=== PATIENT | male | born 1940 | race Caucasian/White ===

== ENCOUNTER 2019-06-12 17:24 | Emergency (ER) | payer MEDICARE, BC ==
[2019-06-12 17:32] VITALS: TEMP 98
[2019-06-12] MEDS ORDERED: ONDANSETRON 4 MG/2 ML VIAL IVP STA (18:26)
[2019-06-12] MEDS ORDERED: SODIUM CHLORIDE 0.9% 1,000 ML IV STA (18:26)
--- NOTE | 2019-06-12 18:55 | ED ---
Weakness HPI - General Chief complaint: Weakness Stated complaint: Dehydration Time Seen by Provider: 06/12/19 18:16 Source: patient Mode of arrival: ambulatory Limitations: no limitations - History of Present Illness Initial comments: patient is 78-year-old male presenting to emergency department with a chief complaint of weakness. He states on he developed nausea vomiting and diarrhea. He reports diarrhea continue for the next several days but it gradually resolved. He reports the nausea but there is not vomiting at this time. Patient reports dyspnea on exertion over the last several days. Denies any chest pain but does have some shortness of breath. Never diagnosed with COPD I did smoke long time ago. Does report some light headedness but denies any dizziness or headache or blurry vision. Denies taking any medication to all eviate the symptoms. Denies any abdominal or back pain or cough. Denies night sweats fevers or chills. Denies any urinary bowel symptoms. - Related Data Previous Rx's Medication Instructions Recorded Ondansetron Odt [Zofran Odt] 4 mg PO Q8HR PRN #10 tab 06/12/19 Allergies Allergy/AdvReac Type Severity Reaction Status Date / Time No Known Allergies Allergy Verified 06/12/19 17:32 Review of Systems ROS Statement: Those systems with pertinent positive or pertinent negative responses have been documented in the HPI. ROS Other: All systems not noted in ROS Statement are negative. Past Medical History Past Medical History: Cancer, Chest Pain / Angina, Hypertension Additional Past Medical History / Comment(s): prostate ca History of Any Multi-Drug Resistant Organisms: None Reported Past Surgical History: Heart Catheterization, Prostate Surgery Past Psychological History: No Psychological Hx Reported Smoking Status: Never smoker Past Alcohol Use History: None Reported Past Drug Use History: None Reported General Exam Limitations: no limitations General appearance: alert, in no apparent distress Head exam: Present: atraumatic, normocephalic, normal inspection Eye exam: Present: normal appearance, PERRL, EOMI Pupils: Present: normal accommodation ENT exam: Present: normal exam, normal oropharynx, mucous membranes dry, normal external ear exam Neck exam: Present: normal inspection, full ROM Respiratory exam: Present: normal lung sounds bilaterally. Absent: respiratory distress, wheezes, rales, rhonchi, stridor, chest wall tenderness Cardiovascular Exam: Present: regular rate, normal rhythm, normal heart sounds GI/Abdominal exam: Present: soft. Absent: tenderness, guarding Extremities exam: Present: normal inspection, full ROM, normal capillary refill, other (+2 ulnar and radial pulses bilaterally.) Back exam: Present: normal inspection, full ROM. Absent: tenderness, CVA tenderness (R), CVA tenderness (L) Neurological exam: Present: alert, oriented X3, CN II-XII intact, normal gait Psychiatric exam: Present: normal affect, normal mood Skin exam: Present: warm, dry, intact, normal color Course Vital Signs 06/12/19 06/12/19 17:29 19:04 Temperature 98.0 F Pulse Rate 61 73 Respiratory 20 18 Rate Blood Pressure 129/85 134/87 O2 Sat by Pulse 97 98 Oximetry EKG Findings - EKG Comments: EKG Findings:: sinus rhythm with first-degree AV block, PA-C. Ventricular rate 82, MD interval 216, QS duration 104, QTC 476. Medical Decision Making - Medical Decision Making patient is a 78-year-old male presenting to emergency Department with chief complaint of weakness. It appears the patient has had gastroenteritis over the last several days. He reports multiple episodes of diarrhea and vomiting and does have some nausea.exam shows mucosal dehydration.no wheezing on auscultation. CMP shows increased BUN which is suspect secondary to dehydration due to gastroenteritis. Patient given Zofran and fluids. Reevaluation patient reports feeling much better. Family members agree as well. Initial troponin is negative. D-dimer negative. CBC unremarkable. patient has to walk and he was able to do without any assistance or assisting devices. Patient reports the dyspnea on exertion has almost completely resolved. Doesn't have any chest pain reports dizziness and lightheadedness is also resolved. Patient states that he would like to home. Patient discharged with Zofran. He was advised to drink lots of fluids with electrolytes. Advised to follow with primary care. Strict return parameters were thoroughly discussed with him and family members who are agreeable and understanding. Case discussed with physician. - Lab Data Result diagrams: 06/12/19 18:44 06/12/19 18:44 Lab Results 06/12/19 06/12/19 06/12/19 Range/Units 18:44 18:44 18:44 WBC 7.5 (3.8-10.6) k/uL RBC 4.98 (4.30-5.90) m/uL Hgb 15.5 (13.0-17.5) gm/dL Hct 45.3 (39.0-53.0) % MCV 90.8 (80.0-100.0) fL MCH 31.1 (25.0-35.0) pg MCHC 34.3 (31.0-37.0) g/dL RDW 13.9 (11.5-15.5) % Plt Count 385 (150-450) k/uL Neutrophils % 55 % Lymphocytes % 32 % Monocytes % 9 % Eosinophils % 1 % Basophils % 2 % Neutrophils # 4.1 (1.3-7.7) k/uL Lymphocytes # 2.3 (1.0-4.8) k/uL Monocytes # 0.7 (0-1.0) k/uL Eosinophils # 0.1 (0-0.7) k/uL Basophils # 0.1 (0-0.2) k/uL PT 11.2 (9.0-12.0) sec INR 1.1 (<1.2) APTT 23.5 (22.0-30.0) sec D-Dimer 0.27 (<0.60) mg/L FEU Sodium 137 (137-145) mmol/L Potassium 4.2 (3.5-5.1) mmol/L Chloride 104 (98-107) mmol/L Carbon Dioxide 23 (22-30) mmol/L Anion Gap 10 mmol/L BUN 34 H (9-20) mg/dL Creatinine 1.18 (0.66-1.25) mg/dL Est GFR (CKD-EPI)AfAm 68 (>60 ml/min/1.73 sqM) Est GFR (CKD-EPI)NonAf 58 (>60 ml/min/1.73 sqM) Glucose 108 H (74-99) mg/dL Calcium 9.7 (8.4-10.2) mg/dL Total Bilirubin 1.0 (0.2-1.3) mg/dL AST 66 H (17-59) U/L ALT 54 H (4-49) U/L Alkaline Phosphatase 48 (38-126) U/L Troponin I (0.000-0.034) ng/mL Total Protein 7.4 (6.3-8.2) g/dL Albumin 4.3 (3.5-5.0) g/dL Urine Color Urine Appearance (Clear) Urine pH (5.0-8.0) Ur Specific [place] (1.001-1.035) Urine Protein (Negative) Urine Glucose (UA) (Negative) Urine Ketones (Negative) Urine Blood (Negative) Urine Nitrite (Negative) Urine Bilirubin (Negative) Urine Urobilinogen (<2.0) mg/dL Ur Leukocyte Esterase (Negative) Urine RBC (0-5) /hpf Urine WBC (0-5) /hpf Ur Squamous Epith Cells (0-4) /hpf Amorphous Sediment (None) /hpf Urine Bacteria (None) /hpf Hyaline Casts (0-2) /lpf Urine Mucus (None) /hpf 06/12/19 06/12/19 Range/Units 18:44 19:10 WBC (3.8-10.6) k/uL RBC (4.30-5.90) m/uL Hgb (13.0-17.5) gm/dL Hct (39.0-53.0) % MCV (80.0-100.0) fL MCH (25.0-35.0) pg MCHC (31.0-37.0) g/dL RDW (11.5-15.5) % Plt Count (150-450) k/uL Neutrophils % % Lymphocytes % % Monocytes % % Eosinophils % % Basophils % % Neutrophils # (1.3-7.7) k/uL Lymphocytes # (1.0-4.8) k/uL Monocytes # (0-1.0) k/uL Eosinophils # (0-0.7) k/uL Basophils # (0-0.2) k/uL PT (9.0-12.0) sec INR (<1.2) APTT (22.0-30.0) sec D-Dimer (<0.60) mg/L FEU Sodium (137-145) mmol/L Potassium (3.5-5.1) mmol/L Chloride (98-107) mmol/L Carbon Dioxide (22-30) mmol/L Anion Gap mmol/L BUN (9-20) mg/dL Creatinine (0.66-1.25) mg/dL Est GFR (CKD-EPI)AfAm (>60 ml/min/1.73 sqM) Est GFR (CKD-EPI)NonAf (>60 ml/min/1.73 sqM) Glucose (74-99) mg/dL Calcium (8.4-10.2) mg/dL Total Bilirubin (0.2-1.3) mg/dL AST (17-59) U/L ALT (4-49) U/L Alkaline Phosphatase (38-126) U/L Troponin I <0.012 (0.000-0.034) ng/mL Total Protein (6.3-8.2) g/dL Albumin (3.5-5.0) g/dL Urine Color Yellow Urine Appearance Cloudy (Clear) Urine pH 5.5 (5.0-8.0) Ur Specific [place] 1.023 (1.001-1.035) Urine Protein Trace H (Negative) Urine Glucose (UA) Negative (Negative) Urine Ketones Negative (Negative) Urine Blood Negative (Negative) Urine Nitrite Negative (Negative) Urine Bilirubin Negative (Negative) Urine Urobilinogen <2.0 (<2.0) mg/dL Ur Leukocyte Esterase Negative (Negative) Urine RBC 1 (0-5) /hpf Urine WBC 2 (0-5) /hpf Ur Squamous Epith Cells <1 (0-4) /hpf Amorphous Sediment Rare H (None) /hpf Urine Bacteria Rare H (None) /hpf Hyaline Casts 24 H (0-2) /lpf Urine Mucus Moderate H (None) /hpf Disposition Clinical Impression: Gastroenteritis Disposition: HOME SELF-CARE Condition: Stable Instructions (If sedation given, give patient instructions): Gastroenteritis (DC) Additional Instructions: Please drink lots of fluids with a O's. Follow with primary care. Please return to emergency department if symptoms worsen. Is patient prescribed a controlled substance at d/c from ED?: No Referrals: Nonstaff,Physician [REFERRING] - 1-2 days Time of Disposition: 20:57
[2019-06-12 19:11] LABS: Basophils # (A) 0.1 k/uL (0-0.2); Basophils % (A) 2 %; Eosinophils # (A) 0.1 k/uL (0-0.7); Eosinophils % (A) 1 %; HCT 45.3 % (39.0-53.0); HGB 15.5 gm/dL (13.0-17.5); Lymphocytes # (A) 2.3 k/uL (1.0-4.8); Lymphocytes % (A) 32 %; MCH 31.1 pg (25.0-35.0); MCHC 34.3 g/dL (31.0-37.0); MCV 90.8 fL (80.0-100.0); Mean Platelet Volume 8.6; Monocytes # (A) 0.7 k/uL (0-1.0); Monocytes % (A) 9 %; Neutrophils # (A) 4.1 k/uL (1.3-7.7); Neutrophils % (A) 55 %; Platelet Count 385 k/uL (150-450); RBC 4.98 m/uL (4.30-5.90); RDW 13.9 % (11.5-15.5); WBC 7.5 k/uL (3.8-10.6)
[2019-06-12 19:14] LABS: Albumin 4.3 g/dL (3.5-5.0); Calcium 9.7 mg/dL (8.4-10.2); Potassium 4.2 mmol/L (3.5-5.1); Total Protein 7.4 g/dL (6.3-8.2)
[2019-06-12 19:31] LABS: D-Dimer 0.27 mg/L FEU (<0.60); INR 1.1 (<1.2)
[2019-06-12 19:32] LABS: Partial Thromboplastin Time 23.5 sec (22.0-30.0); Prothrombin Time 11.2 sec (9.0-12.0)
[2019-06-12 19:37] LABS: Amorphous Sediment,Urine Rare /hpf; Appearance,Urine Cloudy (Clear); Bacteria,Urine Rare /hpf; Bilirubin,Urine Negative (Negative); Blood,Urine Negative (Negative); Color,Urine Yellow; Glucose,Urine (UA) Negative (Negative); Hyaline Casts,Urine 24 /lpf (0-2); Ketones,Urine Negative (Negative); Leukocyte Esterase,Urine Negative (Negative); Mucus,Urine Moderate /hpf; Nitrite,Urine Negative (Negative); PH, Urine 5.5 (5.0-8.0); Protein,Urine Trace (Negative); RBC,Urine 1 /hpf (0-5); Specific Gravity,Urine 1.023 (1.001-1.035); Squamous Epithelial Cell,Urine <1 /hpf (0-4); Urobilinogen,Urine <2.0 mg/dL (<2.0); WBC,Urine 2 /hpf (0-5)
--- NOTE | 2019-06-12 19:42 | XR ---
EXAMINATION TYPE: XR chest 2V DATE OF EXAM: 06/12/2019 COMPARISON: NONE HISTORY: Nausea and vomiting TECHNIQUE: 2 views FINDINGS: Heart is normal. Lungs are clear of infiltrate. Thoracic aorta is atheromatous. There are c hest leads. Bony thorax is intact. There is minor spurring in the thoracic spine. IMPRESSION: No active cardiomegaly disease. Normal heart.
[2019-06-12] MEDS ORDERED: ONDANSETRON 4 MG ODT STARTER PACK 2 TAB BTL PO STA (20:52)
[2019-06-12 21:20] VITALS: BP 128/85; PULSE 84; RESP 20
== END 2019-06-12 21:22 | disposition home or self-care (01) ==
LOC: EC 17:24
DX: K52.9 Noninfective gastroenteritis and colitis, unspecified (principal); E86.0 Dehydration; R79.89 Other specified abnormal findings of blood chemistry; R53.1 Weakness; R06.02 Shortness of breath; Z87.891 Personal history of nicotine dependence; Z85.46 Personal history of malignant neoplasm of prostate; Z98.890 Other specified postprocedural states
CPT/HCPCS: 36415; 93005; 85379; 80053; 84484; 85025; 85610; 85730; 81001; 71046; 99285; 96374; 96361; J2405; S0119

== ENCOUNTER 2019-06-16 18:25 | Observation (INO) | payer MEDICARE, BC ==
[2019-06-16] MEDS ORDERED: SODIUM CHLORIDE 0.9% 500 ML 500 ML IV STA (18:40)
[2019-06-16] MEDS ORDERED: ONDANSETRON 4 MG/2 ML VIAL IVP STA (18:40)
--- NOTE | 2019-06-16 18:46 | ED ---
General Adult HPI - General Chief complaint: Weakness Stated complaint: Weakness Time Seen by Provider: 06/16/19 18:27 Source: patient, EMS Mode of arrival: EMS Limitations: no limitations - History of Present Illness Initial comments: Patient presents the ED by ambulance for evaluation. Patient states that he has felt generally weak since yesterday, and he has felt off balance and dizzy since this morning. Patient also admits to feeling slightly nauseated. Patient was seen in the ED a few days ago for vomiting and diarrhea, and he states that his vomiting and diarrhea have since resolved. Patient denies having any pain, fever or chills, headache, focal numbness/weakness/neuro deficit, visual changes, speech difficulty, chest pain, dyspnea, cough or cold symptoms, palpitations, syncope, abdominal pain, bloody or melanotic stool, dysuria or urinary symptoms, leg or calf swelling or pain, or any other symptoms or complaints. - Related Data Previous Rx's Medication Instructions Recorded Ondansetron Odt [Zofran Odt] 4 mg PO Q8HR PRN #10 tab 06/12/19 Allergies Allergy/AdvReac Type Severity Reaction Status Date / Time No Known Allergies Allergy Verified 06/12/19 17:32 Review of Systems ROS Statement: Those systems with pertinent positive or pertinent negative responses have been documented in the HPI. ROS Other: All systems not noted in ROS Statement are negative. Past Medical History Past Medical History: Cancer, Chest Pain / Angina, Hypertension Additional Past Medical History / Comment(s): prostate ca History of Any Multi-Drug Resistant Organisms: None Reported Past Surgical History: Heart Catheterization, Prostate Surgery Past Psychological History: No Psychological Hx Reported Smoking Status: Never smoker Past Alcohol Use History: None Reported Past Drug Use History: None Reported General Exam Limitations: no limitations General appearance: alert, in no apparent distress Head exam: Present: atraumatic, normocephalic Eye exam: Present: normal appearance, PERRL, EOMI ENT exam: Present: mucous membranes moist Neck exam: Present: other (Trachea is in midline) Respiratory exam: Present: normal lung sounds bilaterally. Absent: respiratory distress, wheezes, rales, rhonchi Cardiovascular Exam: Present: normal rhythm, bradycardia, normal heart sounds, other (Normal radial pulses bilaterally) GI/Abdominal exam: Present: soft. Absent: distended, tenderness, guarding Extremities exam: Present: full ROM. Absent: tenderness, pedal edema, calf tenderness Neurological exam: Present: alert, oriented X3, CN II-XII intact, other (Normal [id number] exam bilaterally). Absent: motor sensory deficit Psychiatric exam: Present: normal affect, normal mood Skin exam: Present: warm, dry, intact, normal color Course Vital Signs 06/16/19 18:31 Temperature 97.5 F L Pulse Rate 53 L Respiratory 18 Rate Blood Pressure 158/93 O2 Sat by Pulse 98 Oximetry - Reevaluation(s) Reevaluation #1: 06/16/19 20:11 Case, H&P, test results and ED management were discussed with Dr. Campos. He accepts hospital floor admission. He has no further recommendations at this time. EKG Findings - EKG Comments: EKG Findings:: Sinus bradycardia with first-degree AV block, ventricular rate of 55 bpm, MT interval of 230 ms, normal QRS interval, normal QT interval, no ectopy, normal axis, no ST or T-wave abnormality Medical Decision Making - Medical Decision Making Patient's imaging studies and labs are fairly unremarkable. Patient has a normal neurological exam at this time. Given the patient's symptoms, will admit the patient to the hospital for further evaluation and monitoring. Patient was given a dose of aspirin in the ED secondary to the possibility of TIA versus CVA. Patient is aware of his test results, and he agrees with hospital admission at this time. Dr. Campos has accepted hospital admission. - Lab Data Result diagrams: 06/16/19 18:55 06/16/19 18:55 Lab Results 06/16/19 06/16/19 06/16/19 Range/Units 18:55 18:55 18:55 WBC 5.2 (3.8-10.6) k/uL RBC 4.44 (4.30-5.90) m/uL Hgb 13.8 (13.0-17.5) gm/dL Hct 40.9 (39.0-53.0) % MCV 92.1 (80.0-100.0) fL MCH 31.1 (25.0-35.0) pg MCHC 33.7 (31.0-37.0) g/dL RDW 14.2 (11.5-15.5) % Plt Count 369 (150-450) k/uL Neutrophils % 47 % Lymphocytes % 38 % Monocytes % 11 % Eosinophils % 2 % Basophils % 1 % Neutrophils # 2.4 (1.3-7.7) k/uL Lymphocytes # 2.0 (1.0-4.8) k/uL Monocytes # 0.5 (0-1.0) k/uL Eosinophils # 0.1 (0-0.7) k/uL Basophils # 0.0 (0-0.2) k/uL PT 11.7 (9.0-12.0) sec INR 1.1 (<1.2) APTT 26.3 (22.0-30.0) sec Sodium 141 (137-145) mmol/L Potassium 4.3 (3.5-5.1) mmol/L Chloride 109 H (98-107) mmol/L Carbon Dioxide 26 (22-30) mmol/L Anion Gap 6 mmol/L BUN 9 (9-20) mg/dL Creatinine 0.90 (0.66-1.25) mg/dL Est GFR (CKD-EPI)AfAm >90 (>60 ml/min/1.73 sqM) Est GFR (CKD-EPI)NonAf 81 (>60 ml/min/1.73 sqM) Glucose 96 (74-99) mg/dL Calcium 9.3 (8.4-10.2) mg/dL Magnesium 1.5 L (1.6-2.3) mg/dL Total Bilirubin 0.6 (0.2-1.3) mg/dL AST 33 (17-59) U/L ALT 28 (4-49) U/L Alkaline Phosphatase 41 (38-126) U/L Troponin I (0.000-0.034) ng/mL Total Protein 6.5 (6.3-8.2) g/dL Albumin 3.7 (3.5-5.0) g/dL Urine Color Urine Appearance (Clear) Urine pH (5.0-8.0) Ur Specific [place] (1.001-1.035) Urine Protein (Negative) Urine Glucose (UA) (Negative) Urine Ketones (Negative) Urine Blood (Negative) Urine Nitrite (Negative) Urine Bilirubin (Negative) Urine Urobilinogen (<2.0) mg/dL Ur Leukocyte Esterase (Negative) 06/16/19 06/16/19 Range/Units 18:55 20:05 WBC (3.8-10.6) k/uL RBC (4.30-5.90) m/uL Hgb (13.0-17.5) gm/dL Hct (39.0-53.0) % MCV (80.0-100.0) fL MCH (25.0-35.0) pg MCHC (31.0-37.0) g/dL RDW (11.5-15.5) % Plt Count (150-450) k/uL Neutrophils % % Lymphocytes % % Monocytes % % Eosinophils % % Basophils % % Neutrophils # (1.3-7.7) k/uL Lymphocytes # (1.0-4.8) k/uL Monocytes # (0-1.0) k/uL Eosinophils # (0-0.7) k/uL Basophils # (0-0.2) k/uL PT (9.0-12.0) sec INR (<1.2) APTT (22.0-30.0) sec Sodium (137-145) mmol/L Potassium (3.5-5.1) mmol/L Chloride (98-107) mmol/L Carbon Dioxide (22-30) mmol/L Anion Gap mmol/L BUN (9-20) mg/dL Creatinine (0.66-1.25) mg/dL Est GFR (CKD-EPI)AfAm (>60 ml/min/1.73 sqM) Est GFR (CKD-EPI)NonAf (>60 ml/min/1.73 sqM) Glucose (74-99) mg/dL Calcium (8.4-10.2) mg/dL Magnesium (1.6-2.3) mg/dL Total Bilirubin (0.2-1.3) mg/dL AST (17-59) U/L ALT (4-49) U/L Alkaline Phosphatase (38-126) U/L Troponin I <0.012 (0.000-0.034) ng/mL Total Protein (6.3-8.2) g/dL Albumin (3.5-5.0) g/dL Urine Color Light Yellow Urine Appearance Clear (Clear) Urine pH 6.5 (5.0-8.0) Ur Specific [place] 1.006 (1.001-1.035) Urine Protein Negative (Negative) Urine Glucose (UA) Negative (Negative) Urine Ketones Negative (Negative) Urine Blood Negative (Negative) Urine Nitrite Negative (Negative) Urine Bilirubin Negative (Negative) Urine Urobilinogen <2.0 (<2.0) mg/dL Ur Leukocyte Esterase Negative (Negative) - Radiology Data Radiology results: report reviewed (Noncontrast head CT is negative), image reviewed (Chest x-ray is negative) Disposition Clinical Impression: Dizziness, Generalized weakness Disposition: ADMITTED IP TO THIS [facility] Condition: Stable Is patient prescribed a controlled substance at d/c from ED?: No Referrals: Solo Dumont MD [Primary Care Provider] - 1-2 days Time of Disposition: 20:11
[2019-06-16 19:17] LABS: ALT 28 U/L (4-49); AST 33 U/L (17-59); African American GFR (CKD) >90 (>60 ml/min/1.73 sqM); Albumin 3.7 g/dL (3.5-5.0); Alkaline Phosphatase 41 U/L (38-126); Anion Gap 6 mmol/L; Blood Urea Nitrogen 9 mg/dL (9-20); Calcium 9.3 mg/dL (8.4-10.2); Carbon Dioxide 26 mmol/L (22-30); Chloride 109 mmol/L (98-107); Glucose 96 mg/dL (74-99); Magnesium 1.5 mg/dL (1.6-2.3); Non-African American GFR(CKD) 81 (>60 ml/min/1.73 sqM); Potassium 4.3 mmol/L (3.5-5.1); Sodium 141 mmol/L (137-145); Total Bilirubin 0.6 mg/dL (0.2-1.3); Total Protein 6.5 g/dL (6.3-8.2)
[2019-06-16 19:24] LABS: INR 1.1 (<1.2); Partial Thromboplastin Time 26.3 sec (22.0-30.0); Prothrombin Time 11.7 sec (9.0-12.0)
[2019-06-16 19:25] LABS: Basophils % (A) 1 %; Eosinophils # (A) 0.1 k/uL (0-0.7); Eosinophils % (A) 2 %; HCT 40.9 % (39.0-53.0); HGB 13.8 gm/dL (13.0-17.5); Lymphocytes % (A) 38 %; MCH 31.1 pg (25.0-35.0); MCHC 33.7 g/dL (31.0-37.0); MCV 92.1 fL (80.0-100.0); Mean Platelet Volume 8.5; Monocytes # (A) 0.5 k/uL (0-1.0); Monocytes % (A) 11 %; Neutrophils # (A) 2.4 k/uL (1.3-7.7); Neutrophils % (A) 47 %; Platelet Count 369 k/uL (150-450); RBC 4.44 m/uL (4.30-5.90); RDW 14.2 % (11.5-15.5); WBC 5.2 k/uL (3.8-10.6)
--- NOTE | 2019-06-16 19:25 | CT ---
EXAMINATION TYPE: CT brain wo con DATE OF EXAM: 06/16/2019 COMPARISON: None HISTORY: Weakness. CT DLP: 1080.4 mGycm Automated exposure control for dose reduction was used. There is cerebral cortical atrophy. There is no mass effect nor midline shift. There is no sign of in tracranial hemorrhage. Calvarium is intact. IMPRESSION: Negative head CT scan.
[2019-06-16] MEDS ORDERED: ASPIRIN 325 MG TAB PO STA (20:12)
[2019-06-16 20:29] LABS: Appearance,Urine Clear (Clear); Bilirubin,Urine Negative (Negative); Blood,Urine Negative (Negative); Color,Urine Light Yellow; Glucose,Urine (UA) Negative (Negative); Ketones,Urine Negative (Negative); Leukocyte Esterase,Urine Negative (Negative); Nitrite,Urine Negative (Negative); PH, Urine 6.5 (5.0-8.0); Protein,Urine Negative (Negative); Specific Gravity,Urine 1.006 (1.001-1.035); Urobilinogen,Urine <2.0 mg/dL (<2.0)
[2019-06-16] MEDS ORDERED: hydrALAZINE HCL 25 MG TAB PO PRN (22:31)
--- NOTE | 2019-06-16 22:43 | P.HPIM ---
History of Present Illness H&P Date: 06/16/19 Chief Complaint: generalized weakness 78-year-old male with history of hypothyroid, hypertension, A. fib on blood thinners Patient comes in today due to generalized weakness and feeling dizzy when he stands up. He denies any changes in his urine output he denies any focal neuro deficits denies any changes in speech vision or hearing. He does admit to decreased by mouth intake he didn't take any of his medications today. He noticed that she's been getting ended easily since he started having nausea vomiting and diarrhea a few days ago at all started when he was out with his family and his grandsons were having some cold symptoms and he started having nausea vomiting and diarrhea he visited the ED few days ago and was discharged after some hydration since then has vomiting and diarrhea has resolved however he's been feeling easily winded when he walks around and have been extremely weak today denies any falling denies any head injury but he is a family was co ncerned that he's getting weaker and brought in for evaluation. Otherwise he denies currently any diarrhea denies any GI bleeding denies any chest pain or trouble breathing denies any fevers or chills Computed tomography scan of the head was negative. Labs and urinalysis both were unremarkable except for low magnesium his vital signs was showing slightly elevated blood pressure but patient does admit to not taking his medications today Review of Systems Pertinent positives as noted in HPI. All other systems were reviewed and are negative Past Medical History Past Medical History: Cancer, Chest Pain / Angina, Hypertension Additional Past Medical History / Comment(s): prostate ca History of Any Multi-Drug Resistant Organisms: None Reported Past Surgical History: Heart Catheterization, Prostate Surgery Past Psychological History: No Psychological Hx Reported Smoking Status: Never smoker Past Alcohol Use History: None Reported Past Drug Use History: None Reported - Past Family History family Additional Family Medical History / Comment(s): Alpha-1 antitrypsin deficiency present his family Medications and Allergies Home Medications and Allergies Comment(s): patient doesn't know his medication list and is not available at this time Home Medications Medication Instructions Recorded Confirmed Type Ondansetron Odt [Zofran Odt] 4 mg PO Q8HR PRN #10 tab 06/12/19 Rx Allergies Allergy/AdvReac Type Severity Reaction Status Date / Time No Known Allergies Allergy Verified 06/12/19 17:32 Physical Exam Vitals: Vital Signs Temp Pulse Pulse Resp BP BP Pulse Ox 06/16/19 21:45 97.4 F L 55 L 20 170/90 96 06/16/19 21:00 60 16 162/91 95 06/16/19 20:59 63 18 163/91 94 L 06/16/19 20:30 51 L 12 167/88 97 06/16/19 20:00 57 L 16 164/74 96 06/16/19 19:30 158/93 98 06/16/19 19:00 158/93 99 06/16/19 18:31 97.5 F L 53 L 18 158/93 93 L Intake and Output 06/16/19 06/16/19 06/16/19 06:59 14:59 22:59 Other: Weight 84.822 kg Constitutional: No acute distress, conversant, pleasant Eyes: Anicteric sclerae, moist conjunctiva, no lid-lag Pupils equal round reactive to light ENMT: NC/AT Oropharynx clear, no erythema, exudates Neck: Supple, FROM, no masses, or JVD No carotid bruits No thyromegaly Lungs: Clear to auscultation Clear to percussion Normal respiratory effort, no accessory muscle use Cardiovascular: Heart regular in rate and rhythm, No murmurs, gallops, or rubs No peripheral edema Abdominal: Soft Nontender, no guarding, rebound or rigidity Abdomen moving with respiration Normoactive bowel sounds No hepatomegaly, No splenomegaly No palpable mass No abdominal wall hernia noted Skin: Normal temperature, tone, texture, turgor No induration No subcutaneous nodules No rash, lesions No ulcers Extremities: No digital cyanosis No clubbing Pedal pulses intact and symmetrical Radial pulses intact and symmetrical No calf tenderness Psychiatric: Alert and oriented to person, place and time Appropriate affect fair judgement Neuro Muscles Strength 5/5 in all 4 extremities Sensation to light touch grossly present throughout Cranial nerves II-XII grossly intact No focal sensory deficits Lymphatics: no palpable cervical or supraclavicular , or inguinal lymph nodes Results CBC & Chem 7: 06/16/19 18:55 06/16/19 18:55 Labs: Abnormal Lab Results - Last 24 Hours (Table) 06/16/19 Range/Units 18:55 Chloride 109 H (98-107) mmol/L Magnesium 1.5 L (1.6-2.3) mg/dL Thrombosis Risk Factor Assmnt - Choose All That Apply Any of the Below Risk Factors Present?: Yes Each Factor Represents 1 point: Obesity (BMI >25) Other Risk Factors: Yes Each Risk Factor Represents 3 Points: Age 75 years or older Thrombosis Risk Factor Assessment Total Risk Factor Score: 4 Thrombosis Risk Factor Assessment Level: Moderate Risk Assessment and Plan Assessment: 78-year-old male with history of hypothyroid A. fib onblood thinner Patient comes in today due to generalized weakness after an episode of what seems like gastroenteritis that has resolved since then. Patient admitted for IV fluid hydration and monitoring overnight With anticipated length of stay less than 2 midnights Plan: generalized weakness Accelerated hypertension Hypomagnesemia gastroenteritis supportive care Patient will provide home medication list in the morning this will be verified with his pharmacy unavailable at this point hydralazine when necessary for systolic blood pressure above 180 IV fluid hydration Replace magnesium IV Follow-up levels of electrolytes Fall precautions PT evaluation Symptomatic control heparin subcu 3 times a day for DVT prophylaxis CT of the brain negativefor any acute pathology Patient is full code Anticipated length of stay of less than 2 midnights Discussed with: Patient, ER, RN Anticipated discharge place: home A total of 60 minutes was spent on the care of this complex patient more than 50% of the time was spent in counseling and care coordination.
[2019-06-16] MEDS ORDERED: MELATONIN 3 MG TABLET PO SCH (22:45)
[2019-06-16] MEDS: HEPARIN SODIUM,PORCINE 5,000 UNIT/ML 1 ML VIAL SQ SCH (22:48)
[2019-06-16] MEDS: PANTOPRAZOLE 40 MG TABLET PO SCH (22:48)
[2019-06-16] MEDS: SODIUM CHLORIDE 0.9% 1,000 ML IV SCH (22:49)
[2019-06-16] MEDS: MAGNESIUM SULFATE-D5W PMX 1 GM in DEXTROSE/WATER 1 100ML.BAG IVPB SCH (23:05)
[2019-06-17] MEDS: MAGNESIUM SULFATE-D5W PMX 1 GM in DEXTROSE/WATER 1 100ML.BAG IVPB SCH ×3 (00:15→14:10)
[2019-06-17] MEDS: HEPARIN SODIUM,PORCINE 5,000 UNIT/ML 1 ML VIAL SQ SCH (07:25)
[2019-06-17] MEDS: PANTOPRAZOLE 40 MG TABLET PO SCH (07:25)
[2019-06-17] MEDS: SODIUM CHLORIDE 0.9% 1,000 ML IV SCH (07:29)
[2019-06-17 08:05] LABS: Basophils % (A) 1 %; Eosinophils # (A) 0.1 k/uL (0-0.7); Eosinophils % (A) 2 %; HCT 39.5 % (39.0-53.0); HGB 13.3 gm/dL (13.0-17.5); Lymphocytes # (A) 2.1 k/uL (1.0-4.8); Lymphocytes % (A) 39 %; MCH 31.5 pg (25.0-35.0); MCHC 33.8 g/dL (31.0-37.0); MCV 93.4 fL (80.0-100.0); Mean Platelet Volume 8.3; Monocytes # (A) 0.5 k/uL (0-1.0); Monocytes % (A) 10 %; Neutrophils # (A) 2.6 k/uL (1.3-7.7); Neutrophils % (A) 48 %; Platelet Count 355 k/uL (150-450); RBC 4.23 m/uL (4.30-5.90); RDW 14.2 % (11.5-15.5); WBC 5.4 k/uL (3.8-10.6)
[2019-06-17 08:21] LABS: ALT 27 U/L (4-49); AST 31 U/L (17-59); African American GFR (CKD) >90 (>60 ml/min/1.73 sqM); Albumin 3.5 g/dL (3.5-5.0); Alkaline Phosphatase 49 U/L (38-126); Anion Gap 9 mmol/L; Blood Urea Nitrogen 7 mg/dL (9-20); Calcium 8.8 mg/dL (8.4-10.2); Carbon Dioxide 24 mmol/L (22-30); Chloride 109 mmol/L (98-107); Glucose 90 mg/dL (74-99); Magnesium 1.8 mg/dL (1.6-2.3); Non-African American GFR(CKD) 78 (>60 ml/min/1.73 sqM); Potassium 4.1 mmol/L (3.5-5.1); Sodium 142 mmol/L (137-145); Total Bilirubin 0.6 mg/dL (0.2-1.3); Total Protein 6.3 g/dL (6.3-8.2)
[2019-06-17] MEDS ORDERED: Magnesium Replacement Protocol 1 EACH MISC MISCELLANE PRN (11:39)
[2019-06-17 13:23] VITALS: RESP 16; TEMP 98.1
[2019-06-17 14:00] VITALS: BP 150/86; PULSE 63
[2019-06-17 14:10] VITALS: BMI 26.8
--- NOTE | 2019-06-17 14:33 | P.DS ---
Providers Date of admission: 06/16/19 20:15 Expected date of discharge: 06/17/19 Attending physician: Kadie Campos MD Primary care physician: Solo Ruano [facility] Course: 78-year-old male with PMH of hypothyroidism, hypertension, atrial fibrillation on blood thinners came to the ED for generalized weakness and dizziness. He denied any speech or vision changes. Patient reported decreased oral intake the day due to nausea, vomiting and diarrhea that he experienced a few days ago. He was exposed to some sick contacts in his grandsons. CT head at that time was negative. WAS vital signs were stable except for slightly elevated blood pressure. CBC was unremarkable. Coagulation panel was negative. CMP showed chloride of 109 and magenesium of 1.5. Urinalysis was negative. Troponin was less than 0.012 with EKG showing sinus bradycardia and 1st degree AV block. Patient was seen and examined. No acute events overnight. Patient reports complete resolution of his dizziness. He would like to go home. He denies any chest pain, shortness of breath, palpitations or dizziness. No nausea or vomiting. No fever or chills. Patient reports dizziness described as room spinning sensation that has been ongoing for the past day. He does describe muffled sounds in his right ear, related to sinus issues. He denies any upper respiratory infections. He denies any changes in dizziness with changes in head position. He denies any head trauma. General: [non toxic], [no distress], [appears at stated age] Derm: [warm], [dry] Head: [atraumatic], [normocephalic], [symmetric] Eyes: [EOMI], [no lid lag], [anicteric sclera] Mouth: [no lip lesion], [mucus membranes moist] Cardiovascular: [S1S2 reg], [no murmur], [positive posterior tibial pulse bilateral], Lungs: [CTA bilateral], [no rhonchi, no rales] , [no accessory muscle use] Abdominal: [soft], [ nontender to palpation], [no guarding], [no appreciable organomegaly] Ext: [no gross muscle atrophy], [no edema], [no contractures] Neuro: [ CN II-XI grossly intact], [no focal neuro deficits] Psych: [Alert], [oriented], [appropriate affect] Vertiginous symptoms Sinusitis Hypomagnesemia Paroxysmal atrial fibrillation Hypertension Hypothyroidism Patient symptoms are described as vertiginous-like. He is orthostats negative. CT brain is negative for acute pathology. Given the decreased hearing in the right ear, this could be related to his vertigo. Plans: We will treat his sinusitis with Claritin and nasal steroid spray. He would also benefit from Sudafed. There is very low concerns for CVA given that he does not have any other symptoms. Patient states that he has a PCP appointment tomorrow and would like to be discharged home today. I would recommend an Echocardiogram with his PCP. We will also start the patient on meclizine. Plans: Treatment as above. Magnesium 1.5. Plans: Replace via protocol. Currently regular. Plans: Anticoagulation with Xarelto. Nifedipine and Metoprolol for rate control. Continue propafenone. BP 155/81. Plans: Continue nifedipine, metoprolol. Monitor vitals, adjust medications as necessary. Plans: Resume Synthroid. [Patient's dizziness has completely resolved. Likely related to sinusitis and decreased hearing in the right side. Orthostats are negative. Patient reports having an appointment with his PCP tomorrow and would like to go home today. Will recommend echocardiogram that should be ordered through his PCP. DC today.] Pertinent Studies: Chest x-ray, brain CT Patient Condition at Discharge: Stable Plan - Discharge Summary New Discharge Prescriptions: New Loratadine [Claritin] 10 mg PO DAILY #30 tab Fluticasone Nasal [place] [Flonase Nasal [place]] 1 spray EA NOSTRIL DAILY #1 bottle Pseudoephedrine HCl [Sudafed] 30 mg PO Q4HR #30 tab Continue Ondansetron Odt [Zofran ODT] 4 mg PO Q8HR PRN #10 tab PRN Reason: Nausea Propafenone [Rythmol] 225 mg PO BID Rivaroxaban [Xarelto] 20 mg PO DAILY NIFEdipine [NIFEdipine ER] 90 mg PO DAILY Montelukast [Singulair] 10 mg PO HS Metoprolol Succinate [Toprol XL] 12.5 mg PO DAILY Losartan Potassium 50 mg PO DAILY Levothyroxine Sodium [Synthroid] 50 mcg PO DAILY LORazepam [Ativan] 2 mg PO Q6H PRN PRN Reason: Anxiety Fenofibrate Nanocrystallized [Fenofibrate] 145 mg PO DAILY Discharge Medication List Ondansetron Odt [Zofran ODT] 4 mg PO Q8HR PRN #10 tab 06/12/19 [Rx] Fenofibrate Nanocrystallized [Fenofibrate] 145 mg PO DAILY 06/17/19 [History] Fluticasone Nasal [place] [Flonase Nasal [place]] 1 spray EA NOSTRIL DAILY #1 bottle 06/17/19 [Rx] LORazepam [Ativan] 2 mg PO Q6H PRN 06/17/19 [History] Levothyroxine Sodium [Synthroid] 50 mcg PO DAILY 06/17/19 [History] Loratadine [Claritin] 10 mg PO DAILY #30 tab 06/17/19 [Rx] Losartan Potassium 50 mg PO DAILY 06/17/19 [History] Metoprolol Succinate [Toprol XL] 12.5 mg PO DAILY 06/17/19 [History] Montelukast [Singulair] 10 mg PO HS 06/17/19 [History] NIFEdipine [NIFEdipine ER] 90 mg PO DAILY 06/17/19 [History] Propafenone [Rythmol] 225 mg PO BID 06/17/19 [History] Pseudoephedrine HCl [Sudafed] 30 mg PO Q4HR #30 tab 06/17/19 [Rx] Rivaroxaban [Xarelto] 20 mg PO DAILY 06/17/19 [History] Follow up Appointment(s)/Referral(s): Solo Dumont MD [Primary Care Provider] - 1-2 days Activity/Diet/Wound Care/Special Instructions: Diet: Low-salt Follow-up PCP tomorrow. Note to PCP: Order echocardiogram. Take all medications as advised. Come back to the ER call 911 for worsening chest pain, shortness breath, palpitations, dizziness, slurred speech. Discharge Disposition: HOME SELF-CARE
== END 2019-06-17 16:21 | disposition home or self-care (01) ==
LOC: EC 18:25 → 6NMEDSUR 20:15
PROVIDERS: ADMIT Internal Medicine; ATTEND Internal Medicine
DX: R42 Dizziness and giddiness (principal); R53.1 Weakness; J32.9 Chronic sinusitis, unspecified; E83.42 Hypomagnesemia; E03.9 Hypothyroidism, unspecified; I10 Essential (primary) hypertension; I44.0 Atrioventricular block, first degree; I48.91 Unspecified atrial fibrillation; Z85.46 Personal history of malignant neoplasm of prostate; Z79.01 Long term (current) use of anticoagulants; Z79.899 Other long term (current) drug therapy; Z79.890 Hormone replacement therapy
CPT/HCPCS: 96365; 96366; 96372 ×2; 96375; 99285; 36415; 93005; 97161; 80053 ×2; 83735 ×2; 84484; 85025 ×2; 85610; 85730; 81003; 71046; 70450; G0378 ×2; J1644 ×2; J2405; J3475 ×2

== ENCOUNTER 2020-06-03 19:29 | Inpatient (IN) | payer MEDICARE, BC ==
--- NOTE | 2020-06-03 20:10 | ED ---
General Adult HPI - General Chief complaint: Dizziness Stated complaint: Dizziness Time Seen by Provider: 06/03/20 19:37 Source: patient, EMS Mode of arrival: EMS Limitations: no limitations - History of Present Illness Initial comments: Dictation was produced using [employer] dictation software. please excuse any grammatical, word or spelling errors. This patient was cared for during a federal and state declared state of emergency secondary to Covid 19 Chief Complaint: 79-year-old male presents with presyncope History of Present Illness: Is a 79-year-old male who has past medical history of vascular disease, angina hypertension. He presents today with presyncope. Patient states she's been feeling lightheaded for the last couple days. Today's in the kitchen try to make dinner when all of a sudden he became very nauseated and diaphoretic. He sat down. He told his family member who checked his heart rate and blood pressure. As found that his heart rate was on the low side. EMS was called patient is brought to the emergency department. Patient states that he's been dealing with lightheadedness for the last couple days. Denies abdominal pain or diarrhea. Patient states he had no emesis. At rest he feels relatively stable however still does feel sort of lightheaded. Patient does have cardiac problems. He takes rivaroxaban for stroke prophylaxis secondary to valvular disease. The ROS documented in this emergency department record has been reviewed and confirmed by me. Those systems with pertinent positive or negative responses have been documented in the HPI. All other systems are other negative and/or noncontributory. PHYSICAL EXAM: General Impression: Alert and oriented x3, not in acute distress HEENT: Normocephalic atraumatic, extra-ocular movements intact, pupils equal and reactive to light bilaterally, mucous membranes moist. Cardiovascular: Heart regular rate and rhythm Chest: Able to complete full sentences, no retractions, no tachypnea Abdomen: abdomen soft, non-tender, non-distended, no organomegaly Musculoskeletal: Pulses present and equal in all extremities, no peripheral edema Motor: no focal deficits noted Neurological: CN II-XII grossly intact, no focal motor or sensory deficits noted Skin: Intact with no visualized rashes Psych: Normal affect and mood ED course: 79 y Old male presents with presyncope and several days of lightheadedness. Signs upon arrival shows heart rate of 40, rest of vital signs within acceptable limits. Physical examination is benign except for slow heart rate. Patient's medications are reviewed. Patient does take metoprolol. He does have thyroid disease. Patient also takes propafenone. Laboratory evaluation obtained. CBC unremarkable. Cardiac panel is negative. Metabolic panel shows no acute processes. no electrolyte abnormalities. Chest x-ray is not acute. Patient reevaluated at bedside approximately 10:20 PM vomits to be bradycardic. Considering patient's age and comorbidities will have recommended observation for medical monitoring cardiology consultation. Case discussed with Dr. koch who is willing to accept patients care. EKG interpretation: Ventricular rate 49, sinus bradycardia, NE interval 202, QRS 94, QTC 397. No NE prolongation, no QTC prolongation, no ST or T-wave changes noted. EKG compared to june 16 2019 showing no changes. - Related Data Home Medications Medication Instructions Recorded Confirmed Fenofibrate Nanocrystallized 145 mg PO DAILY 06/17/19 06/03/20 [Fenofibrate] Levothyroxine Sodium [Synthroid] 50 mcg PO DAILY 06/17/19 06/03/20 Losartan Potassium 50 mg PO BID 06/17/19 06/03/20 Metoprolol Succinate [Toprol XL] 12.5 mg PO DAILY 06/17/19 06/03/20 Montelukast [Singulair] 10 mg PO HS 06/17/19 06/03/20 NIFEdipine [NIFEdipine ER] 90 mg PO DAILY 06/17/19 06/03/20 Propafenone [Rythmol] 225 mg PO BID 06/17/19 06/03/20 Rivaroxaban [Xarelto] 20 mg PO DAILY 06/17/19 06/03/20 Cyanocobalamin [Vitamin B-12] 500 mcg PO DAILY 06/03/20 06/03/20 Multivitamins, Thera [Multivitamin 1 tab PO DAILY 06/03/20 06/03/20 (formulary)] Omeprazole 40 mg PO DAILY 06/03/20 06/03/20 traZODone HCL [Desyrel] 100 mg PO HS 06/03/20 06/03/20 Allergies Allergy/AdvReac Type Severity Reaction Status Date / Time No Known Allergies Allergy Verified 06/03/20 21:24 Review of Systems ROS Statement: Those systems with pertinent positive or pertinent negative responses have been documented in the HPI. ROS Other: All systems not noted in ROS Statement are negative. Past Medical History Past Medical History: Cancer, Chest Pain / Angina, Hypertension Additional Past Medical History / Comment(s): prostate ca History of Any Multi-Drug Resistant Organisms: None Reported Past Surgical History: Heart Catheterization, Prostate Surgery Past Psychological History: No Psychological Hx Reported Smoking Status: Former smoker Past Alcohol Use History: None Reported Past Drug Use History: None Reported - Past Family History family Additional Family Medical History / Comment(s): Alpha-1 antitrypsin deficiency present his family General Exam Limitations: no limitations Course Vital Signs 06/03/20 19:35 Temperature 98.2 F Pulse Rate 48 L Respiratory 16 Rate Blood Pressure 127/63 O2 Sat by Pulse 96 Oximetry Medical Decision Making - Lab Data Result diagrams: 06/03/20 20:03 06/03/20 20:03 Lab Results 06/03/20 06/03/20 06/03/20 Range/Units 20:03 20:03 20:03 WBC 6.5 (3.8-10.6) k/uL RBC 4.36 (4.30-5.90) m/uL Hgb 13.2 (13.0-17.5) gm/dL Hct 41.8 (39.0-53.0) % MCV 95.9 (80.0-100.0) fL MCH 30.3 (25.0-35.0) pg MCHC 31.7 (31.0-37.0) g/dL RDW 13.7 (11.5-15.5) % Plt Count 360 (150-450) k/uL MPV 8.4 Neutrophils % 45 % Lymphocytes % 40 % Monocytes % 10 % Eosinophils % 2 % Basophils % 1 % Neutrophils # 2.9 (1.3-7.7) k/uL Lymphocytes # 2.6 (1.0-4.8) k/uL Monocytes # 0.6 (0-1.0) k/uL Eosinophils # 0.2 (0-0.7) k/uL Basophils # 0.0 (0-0.2) k/uL PT 13.0 H (9.0-12.0) sec INR 1.3 H (<1.2) APTT 31.3 H (22.0-30.0) sec Sodium 138 (137-145) mmol/L Potassium 4.9 (3.5-5.1) mmol/L Chloride 104 (98-107) mmol/L Carbon Dioxide 24 (22-30) mmol/L Anion Gap 10 mmol/L BUN 28 H (9-20) mg/dL Creatinine 1.32 H (0.66-1.25) mg/dL Est GFR (CKD-EPI)AfAm 59 (>60 ml/min/1.73 sqM) Est GFR (CKD-EPI)NonAf 51 (>60 ml/min/1.73 sqM) Glucose 113 H (74-99) mg/dL Calcium 9.7 (8.4-10.2) mg/dL Magnesium 1.6 (1.6-2.3) mg/dL Total Bilirubin 0.4 (0.2-1.3) mg/dL AST 32 (17-59) U/L ALT 21 (4-49) U/L Alkaline Phosphatase 38 (38-126) U/L Troponin I (0.000-0.034) ng/mL Total Protein 7.3 (6.3-8.2) g/dL Albumin 4.2 (3.5-5.0) g/dL TSH 3.580 (0.465-4.680) mIU/L 06/03/20 Range/Units 20:03 WBC (3.8-10.6) k/uL RBC (4.30-5.90) m/uL Hgb (13.0-17.5) gm/dL Hct (39.0-53.0) % MCV (80.0-100.0) fL MCH (25.0-35.0) pg MCHC (31.0-37.0) g/dL RDW (11.5-15.5) % Plt Count (150-450) k/uL MPV Neutrophils % % Lymphocytes % % Monocytes % % Eosinophils % % Basophils % % Neutrophils # (1.3-7.7) k/uL Lymphocytes # (1.0-4.8) k/uL Monocytes # (0-1.0) k/uL Eosinophils # (0-0.7) k/uL Basophils # (0-0.2) k/uL PT (9.0-12.0) sec INR (<1.2) APTT (22.0-30.0) sec Sodium (137-145) mmol/L Potassium (3.5-5.1) mmol/L Chloride (98-107) mmol/L Carbon Dioxide (22-30) mmol/L Anion Gap mmol/L BUN (9-20) mg/dL Creatinine (0.66-1.25) mg/dL Est GFR (CKD-EPI)AfAm (>60 ml/min/1.73 sqM) Est GFR (CKD-EPI)NonAf (>60 ml/min/1.73 sqM) Glucose (74-99) mg/dL Calcium (8.4-10.2) mg/dL Magnesium (1.6-2.3) mg/dL Total Bilirubin (0.2-1.3) mg/dL AST (17-59) U/L ALT (4-49) U/L Alkaline Phosphatase (38-126) U/L Troponin I <0.012 (0.000-0.034) ng/mL Total Protein (6.3-8.2) g/dL Albumin (3.5-5.0) g/dL TSH (0.465-4.680) mIU/L Disposition Clinical Impression: Pre-syncope, Bradycardia Disposition: ADMITTED IP TO THIS HOSP Condition: Fair Referrals: Solo Dumont MD [Primary Care Provider] - 1-2 days Decision Time: 22:28
--- NOTE | 2020-06-03 20:34 | XR ---
EXAMINATION TYPE: XR chest 2V DATE OF EXAM: 06/03/2020 COMPARISON: 06/16/2019 HISTORY: Weakness TECHNIQUE: 2 views FINDINGS: Heart is normal. Lungs are clear of consolidation. There are no hilar masses. Thoracic aort a is atheromatous. There are chest leads. IMPRESSION: No active cardiopulmonary disease. Atheromatous aorta. Normal heart. No change.
[2020-06-03 20:41] LABS: Basophils % (A) 1 %; Eosinophils # (A) 0.2 k/uL (0-0.7); Eosinophils % (A) 2 %; HCT 41.8 % (39.0-53.0); HGB 13.2 gm/dL (13.0-17.5); Lymphocytes # (A) 2.6 k/uL (1.0-4.8); Lymphocytes % (A) 40 %; MCH 30.3 pg (25.0-35.0); MCHC 31.7 g/dL (31.0-37.0); MCV 95.9 fL (80.0-100.0); Mean Platelet Volume 8.4; Monocytes # (A) 0.6 k/uL (0-1.0); Monocytes % (A) 10 %; Neutrophils # (A) 2.9 k/uL (1.3-7.7); Neutrophils % (A) 45 %; Platelet Count 360 k/uL (150-450); RBC 4.36 m/uL (4.30-5.90); RDW 13.7 % (11.5-15.5); WBC 6.5 k/uL (3.8-10.6)
[2020-06-03 20:50] LABS: Albumin 4.2 g/dL (3.5-5.0); Calcium 9.7 mg/dL (8.4-10.2); Magnesium 1.6 mg/dL (1.6-2.3); Potassium 4.9 mmol/L (3.5-5.1); Total Bilirubin 0.4 mg/dL (0.2-1.3); Total Protein 7.3 g/dL (6.3-8.2)
[2020-06-03 20:58] LABS: INR 1.3 (<1.2); Partial Thromboplastin Time 31.3 sec (22.0-30.0)
[2020-06-03] MEDS ORDERED: NALOXONE 0.4 MG/ML 1 ML VIAL IV PRN (22:23)
[2020-06-03] MEDS ORDERED: ONDANSETRON 4 MG/2 ML VIAL IVP PRN (22:23)
[2020-06-03] MEDS ORDERED: SODIUM CHLORIDE 0.9% 1,000 ML IV SCH (22:30)
[2020-06-04] MEDS ORDERED: LOSARTAN 50 MG TAB PO SCH ×2 (09:00→21:00)
[2020-06-04] MEDS: RIVAROXABAN 20 MG TAB PO SCH (09:15)
[2020-06-04] MEDS ORDERED: SODIUM CHLORIDE 0.9% 1,000 ML IV SCH (09:30)
--- NOTE | 2020-06-04 12:34 | ECHOF ---
Referral Reason:near syncope MEASUREMENTS -------- HEIGHT: 180.3 cm WEIGHT: 89.8 kg BP: RVIDd: 3.5 cm (< 3.3) IVSd: 1.2 cm (0.6 - 1.1) LVIDd: 4.7 cm (3.9 - 5.3) LVPWd: 1.2 cm (0.6 - 1.1) IVSs: 1.8 cm LVIDs: 2.3 cm LVPWs: 1.6 cm LAESV Index (A-L): 20.19 ml/m Ao Diam: 3.4 cm (2.0 - 3.7) AV Cusp: 1.4 cm (1.5 - 2.6) LA Diam: 2.8 cm (2.7 - 3.8) MV EXCURSION: 12.907 mm (> 18.000) MV EF SLOPE: 65 mm/s (70 - 150) EPSS: 0.7 cm MV E Rhys: 0.67 m/s MV DecT: 289 ms MV A Rhys: 1.00 m/s MV E/A Ratio: 0.67 AV maxP.85 mmHg AV meanP.56 mmHg RAP: 5.00 mmHg RVSP: 36.12 mmHg TAPSE: 26.03 mm FINDINGS -------- This was a technically good study. The left ventricular size is normal. There is mild concentric left ventricular hypertrophy. Overa ll left ventricular systolic function is normal with, an EF between 55 - 60 %. The diastolic fillin g pattern is normal for the age of the patient 12.47. The right ventricle is mildly enlarged. The left atrium is mildly dilated. Normal LA size by volume 22+/-6 ml/m2. RA appears enlarged. Interatrial and interventricular septum intact. Aortic valve is trileaflet and is mildly thickened. There is mild aortic stenosis present. Peak/m dann gradient across the Aortic Valve is 26.85mmHg / 14.56mmHg. The mitral valve is normal. The mitral valve leaflets are mildly thickened. Mild mitral regurgita tion is present. The tricuspid valve appears structurally normal. Mild tricuspid regurgitation present. There is b orderline pulmonary hypertension. The right ventricular systolic pressure, as measured by Doppler, is 36.12mmHg. There is no pulmonic regurgitation present. The aortic root size is normal. Normal inferior vena cava with normal inspiratory collapse consistent with estimated right atrial pre ssure of 5 mmHg. There is no pericardial effusion. CONCLUSIONS -------- 1. The left ventricular size is normal. 2. There is mild concentric left ventricular hypertrophy. 3. Overall left ventricular systolic function is normal with, an EF between 55 - 60 %. 4. The diastolic filling pattern is normal for the age of the patient 12.47 5. The right ventricle is mildly enlarged. 6. The left atrium is mildly dilated. 7. RA appears enlarged. 8. Aortic valve is trileaflet and is mildly thickened. 9. There is mild aortic stenosis present. 10. Peak/mean gradient across the Aortic Valve is 26.85mmHg / 14.56mmHg. 11. The mitral valve leaflets are mildly thickened. 12. Mild mitral regurgitation is present. 13. Mild tricuspid regurgitation present. 14. There is borderline pulmonary hypertension. 15. The right ventricular systolic pressure, as measured by Doppler, is 36.12mmHg. 16. There is no pericardial effusion. [employer] TECHNICIAN: Roxana Ray RDCS
--- NOTE | 2020-06-04 13:38 | P.HPIM ---
History of Present Illness 79-year-old pleasant male came in with compensative lightheadedness and nausea today and diaphoretic found to have A. fib with bradycardia. Patient also bit hypotensive.. Patient has known history of atrial fibrillation for which patient is on beta edvin as well as a pop of the known. These are being held because of his symptoms. Patient is admitted for symptomatic bradycardia Review of Systems REVIEW OF SYSTEMS: CONSTITUTIONAL: No fever, no malaise, no fatigue. HEENT: No recent visual problems or hearing problems. Denied any sore throat. CARDIOVASCULAR: No chest pain, orthopnea, PND, no palpitations, no syncope. PULMONARY: No shortness of breath, no cough, no hemoptysis. GASTROINTESTINAL: No diarrhea, no nausea, no vomiting, no abdominal pain. NEUROLOGICAL: No headaches, no weakness, no numbness. HEMATOLOGICAL: Denies any bleeding or petechiae. GENITOURINARY: Denies any burning micturition, frequency, or urgency. MUSCULOSKELETAL/RHEUMATOLOGICAL: Denies any joint pain, swelling, or any muscle pain. ENDOCRINE: Denies any polyuria or polydipsia. The rest of the 14-point review of systems is negative. Past Medical History Past Medical History: Cancer, Chest Pain / Angina, Hypertension Additional Past Medical History / Comment(s): prostate ca, PT STATES HAS BEEN TOLD DTHE MUSCLE OVER HEART IS ENLARGED History of Any Multi-Drug Resistant Organisms: None Reported Past Surgical History: Heart Catheterization, Prostate Surgery Past Anesthesia/Blood Transfusion Reactions: No Reported Reaction Past Psychological History: No Psychological Hx Reported Smoking Status: Former smoker Past Alcohol Use History: None Reported Past Drug Use History: None Reported - Past Family History Father Family Medical History: No Reported History Mother Family Medical History: Cancer family Additional Family Medical History / Comment(s): Alpha-1 antitrypsin deficiency present his family Medications and Allergies Home Medications Medication Instructions Recorded Confirmed Type Fenofibrate Nanocrystallized 145 mg PO DAILY 06/17/19 06/03/20 History [Fenofibrate] Levothyroxine Sodium [Synthroid] 50 mcg PO DAILY 06/17/19 06/03/20 History Losartan Potassium 50 mg PO BID 06/17/19 06/03/20 History Metoprolol Succinate [Toprol XL] 12.5 mg PO DAILY 06/17/19 06/03/20 History Montelukast [Singulair] 10 mg PO HS 06/17/19 06/03/20 History NIFEdipine [NIFEdipine ER] 90 mg PO DAILY 06/17/19 06/03/20 History Propafenone [Rythmol] 225 mg PO BID 06/17/19 06/03/20 History Rivaroxaban [Xarelto] 20 mg PO DAILY 06/17/19 06/03/20 History Cyanocobalamin [Vitamin B-12] 500 mcg PO DAILY 06/03/20 06/03/20 History Multivitamins, Thera [Multivitamin 1 tab PO DAILY 06/03/20 06/03/20 History (formulary)] Omeprazole 40 mg PO DAILY 06/03/20 06/03/20 History traZODone HCL [Desyrel] 100 mg PO HS 06/03/20 06/03/20 History Allergies Allergy/AdvReac Type Severity Reaction Status Date / Time No Known Allergies Allergy Verified 06/03/20 21:24 Physical Exam Vitals: Vital Signs Temp Pulse Pulse Pulse Pulse Resp BP 06/04/20 12:00 78 79 16 06/04/20 08:00 83 72 16 06/04/20 04:00 97.8 F 69 18 06/04/20 01:08 98.1 F 58 L 61 56 L 18 06/04/20 01:05 18 06/04/20 00:50 98.0 F 06/04/20 00:30 49 L 21 128/70 06/04/20 00:00 46 L 16 105/78 06/03/20 23:30 60 21 129/60 06/03/20 23:00 50 L 16 117/61 06/03/20 22:30 49 L 16 105/55 06/03/20 22:00 47 L 18 108/55 06/03/20 21:30 44 L 14 114/94 06/03/20 21:00 48 L 18 92/53 06/03/20 20:30 45 L 16 106/63 06/03/20 20:00 44 L 16 127/63 06/03/20 19:35 98.2 F 48 L 16 127/63 06/03/20 19:32 BP BP BP Pulse Ox 06/04/20 12:00 138/85 140/79 95 06/04/20 08:00 152/74 118/71 94 L 06/04/20 04:00 146/78 93 L 06/04/20 01:08 158/62 168/77 137/88 96 06/04/20 01:05 06/04/20 00:50 06/04/20 00:30 95 06/04/20 00:00 96 06/03/20 23:30 96 06/03/20 23:00 97 06/03/20 22:30 97 06/03/20 22:00 97 06/03/20 21:30 98 06/03/20 21:00 96 06/03/20 20:30 95 06/03/20 20:00 95 06/03/20 19:35 96 06/03/20 19:32 96 Intake and Output 06/03/20 06/04/20 06/04/20 22:59 06:59 14:59 Intake Total 0 Balance 0 Intake: Oral 0 Other: # Voids 0 1 Weight 89.811 kg 89.811 kg PHYSICAL EXAMINATION: GENERAL: The patient is alert and oriented x3, not in any acute distress. Well developed, well nourished. HEENT: Pupils are round and equally reacting to light. EOMI. No scleral icterus. No conjunctival pallor. Normocephalic, atraumatic. No pharyngeal erythema. No thyromegaly. CARDIOVASCULAR: S1 and S2 present. No murmurs, rubs, or gallops. Irregularly irregular rhythm PULMONARY: Chest is clear to auscultation, no wheezing or crackles. ABDOMEN: Soft, nontender, nondistended, normoactive bowel sounds. No palpable organomegaly. MUSCULOSKELETAL: No joint swelling or deformity. EXTREMITIES: No cyanosis, clubbing, or pedal edema. NEUROLOGICAL: Gross neurological examination did not reveal any focal deficits. SKIN: No rashes. Results CBC & Chem 7: 06/03/20 20:03 06/03/20 20:03 Labs: Abnormal Lab Results - Last 24 Hours (Table) 06/03/20 06/03/20 Range/Units 20:03 20:03 PT 13.0 H (9.0-12.0) sec INR 1.3 H (<1.2) APTT 31.3 H (22.0-30.0) sec BUN 28 H (9-20) mg/dL Creatinine 1.32 H (0.66-1.25) mg/dL Glucose 113 H (74-99) mg/dL Thrombosis Risk Factor Assmnt - Choose All That Apply Each Risk Factor Represents 3 Points: Age 75 years or older Thrombosis Risk Factor Assessment Total Risk Factor Score: 3 Thrombosis Risk Factor Assessment Level: Moderate Risk Assessment and Plan Plan: Dizziness and lightheadedness: Secondary to bradycardia. Patient does have history of atrial fibrillation presently bradycardic holding off on beta edvin. Patient also has acute renal failure probably prerenal azotemia will be started on IV fluids. Echocardiac was obtained which showed normal ejection fraction. -Acute renal failure. Prerenal. Azotemia due to intravascular depletion patient will be given IV fluids -Hypothyroidism TSH is within normal lives patient was resumed on home dose of levothyroxine. I for possible chronic atrial fibrillation patient denied correlation which will be resumed and continued holding of metoprolol and propafenone. -Hypertension blood pressure started going up patient was started on calcium edvin. -Hyperlipidemia -Gastroesophageal reflux disease
--- NOTE | 2020-06-04 13:57 | P.CRDCN ---
History of Present Illness History of present illness: HISTORY OF PRESENTING ILLNESS This is a pleasant 79-year-old male past medical history significant for excessively atrial fibrillation on long-term anticoagulation, hypertension, prostate cancer and former nicotine dependence. He follows in the [place] he is unsure of the name. He denies prior history of coronary artery disease and has never had a cardiac catheterization that he recalls. We have been asked to see in consultation for near syncope. He states over the previous few days he's noticed increased overall fatigue. Yesterday he was up making dinner for himself and his when he started feeling lightheaded and mildly nauseated. He went over and sat down on the couch. He doesn't remember exactly what his heart rate was but he felt his pulse and said his heart rate was low. On arrival to the emergency department EKG revealed sinus bradycardia with heart rate of 49. Telemetry tracings reveal persistent sinus mechanism with heart rates between 45 and 55. He denies ever having had chest pain or palpitations. He did not have any loss of consciousness. He states he had a stress test with his primary perinatal breastfeeding assistant about 3 months ago that he was told was normal. Chest x-ray on this admission is negative for an acute cardiopulmonary process. Laboratory data reviewed, CBC unremarkable, INR 1.3, sodium 138, potassium 4.9, creatinine 1.32, magnesium 1.6, cardiac enzymes negative 1 and and TSH 3.58. Current daily cardiac medications include Rythmol 225 mg twice a day, Xarelto 20 mg daily, nifedipine 90 mg daily, Toprol 12.5 mg daily and losartan 50 mg twice a day. Orthostatic vital signs revealed supine blood pressure of 152/74 and standing 118/71. REVIEW OF SYSTEMS At the time of my exam: CONSTITUTIONAL: Denies fever or chills. CARDIOVASCULAR: Denies chest pain, shortness of breath, orthopnea, PND or palpitations. RESPIRATORY: Denies cough. GASTROINTESTINAL: Denies abdominal pain, diarrhea, constipation, nausea or vomiting. MUSCULOSKELETAL: Denies myalgias. NEUROLOGIC: Denies numbness, tingling or weakness. ENDOCRINE: Denies fatigue, weight change, polydipsia or polyurina. GENITOURINARY: Denies burning, hematuria or urgency with micturation. HEMATOLOGIC: Denies history of anemia or bleeding. PHYSICAL EXAMINATION CONSTITUTIONAL: No apparent distress. HEENT: Head is normocephalic. Pupils are equal, round. Sclerae anicteric. Mucous membranes of the mouth are moist. No JVD. No carotid bruit. CHEST EXAMINATION: Lungs are clear to auscultation. No chest wall tenderness is noted on palpation or with deep breathing. HEART EXAMINATION: Regular rate and rhythm. S1, S2 heard. Systolic ejection murmur at the base, no gallops or rub. ABDOMEN: Soft, nontender. Positive bowel sounds. EXTREMITIES: 2+ peripheral pulses, no lower extremity edema and no calf tenderness. NEUROLOGIC EXAMINATION: Patient is awake, alert and oriented x3. ASSESSMENT Near syncope with bradycardia Acute kidney injury Paroxysmal atrial fibrillation on long-term anticoagulation Hypertension PLAN Obtain 2-D echocardiogram and Doppler study to assess cardiac structure and function. Hold nifedipine and Toprol. Resume losartan in the morning only. Initiate amlodipine 5 mg at bedtime. Change rythmold to 150 mg TID. Resume Xarelto for thromboembolic protection. Obtain a copy of his recent stress test from his primary perinatal breastfeeding assistant. The patient is calling his daughter to confirm the physician's name. Check orthostatic vital signs every shift. Further recommendations to follow based upon clinical course. Thank you kindly for this consultation. Nurse Practitioner note has been reviewed, I agree with a documented findings and plan of care. Patient was seen and examined. Past Medical History Past Medical History: Cancer, Chest Pain / Angina, Hypertension Additional Past Medical History / Comment(s): prostate ca, PT STATES HAS BEEN T OLD DTHE MUSCLE OVER HEART IS ENLARGED History of Any Multi-Drug Resistant Organisms: None Reported Past Surgical History: Heart Catheterization, Prostate Surgery Past Anesthesia/Blood Transfusion Reactions: No Reported Reaction Past Psychological History: No Psychological Hx Reported Smoking Status: Former smoker Past Alcohol Use History: None Reported Past Drug Use History: None Reported - Past Family History Father Family Medical History: No Reported History Mother Family Medical History: Cancer family Additional Family Medical History / Comment(s): Alpha-1 antitrypsin deficiency present his family Medications and Allergies Home Medications Medication Instructions Recorded Confirmed Type Fenofibrate Nanocrystallized 145 mg PO DAILY 06/17/19 06/03/20 History [Fenofibrate] Levothyroxine Sodium [Synthroid] 50 mcg PO DAILY 06/17/19 06/03/20 History Losartan Potassium 50 mg PO BID 06/17/19 06/03/20 History Metoprolol Succinate [Toprol XL] 12.5 mg PO DAILY 06/17/19 06/03/20 History Montelukast [Singulair] 10 mg PO HS 06/17/19 06/03/20 History NIFEdipine [NIFEdipine ER] 90 mg PO DAILY 06/17/19 06/03/20 History Propafenone [Rythmol] 225 mg PO BID 06/17/19 06/03/20 History Rivaroxaban [Xarelto] 20 mg PO DAILY 06/17/19 06/03/20 History Cyanocobalamin [Vitamin B-12] 500 mcg PO DAILY 06/03/20 06/03/20 History Multivitamins, Thera [Multivitamin 1 tab PO DAILY 06/03/20 06/03/20 History (formulary)] Omeprazole 40 mg PO DAILY 06/03/20 06/03/20 History traZODone HCL [Desyrel] 100 mg PO HS 06/03/20 06/03/20 History Allergies Allergy/AdvReac Type Severity Reaction Status Date / Time No Known Allergies Allergy Verified 06/03/20 21:24 Physical Exam Vitals: Vital Signs Temp Pulse Pulse Pulse Pulse Resp BP 06/04/20 04:00 97.8 F 69 18 06/04/20 01:08 98.1 F 58 L 61 56 L 18 06/04/20 01:05 18 06/04/20 00:50 98.0 F 06/04/20 00:30 49 L 21 128/70 06/04/20 00:00 46 L 16 105/78 06/03/20 23:30 60 21 129/60 06/03/20 23:00 50 L 16 117/61 06/03/20 22:30 49 L 16 105/55 06/03/20 22:00 47 L 18 108/55 06/03/20 21:30 44 L 14 114/94 06/03/20 21:00 48 L 18 92/53 06/03/20 20:30 45 L 16 106/63 06/03/20 20:00 44 L 16 127/63 06/03/20 19:35 98.2 F 48 L 16 127/63 06/03/20 19:32 BP BP BP Pulse Ox 06/04/20 04:00 146/78 93 L 06/04/20 01:08 158/62 168/77 137/88 96 06/04/20 01:05 06/04/20 00:50 06/04/20 00:30 95 06/04/20 00:00 96 06/03/20 23:30 96 06/03/20 23:00 97 06/03/20 22:30 97 06/03/20 22:00 97 06/03/20 21:30 98 06/03/20 21:00 96 06/03/20 20:30 95 06/03/20 20:00 95 06/03/20 19:35 96 06/03/20 19:32 96 Intake and Output 06/03/20 06/04/20 06/04/20 22:59 06:59 14:59 Intake Total 0 Balance 0 Intake: Oral 0 Other: # Voids 0 1 Weight 89.811 kg 89.811 kg Results 06/03/20 20:03 06/03/20 20:03 Cardiac Enzymes 06/03/20 06/03/20 Range/Units 20:03 20:03 AST 32 (17-59) U/L Troponin I <0.012 (0.000-0.034) ng/mL Coagulation 06/03/20 Range/Units 20:03 PT 13.0 H (9.0-12.0) sec APTT 31.3 H (22.0-30.0) sec CBC 06/03/20 Range/Units 20:03 WBC 6.5 (3.8-10.6) k/uL RBC 4.36 (4.30-5.90) m/uL Hgb 13.2 (13.0-17.5) gm/dL Hct 41.8 (39.0-53.0) % Plt Count 360 (150-450) k/uL Comprehensive Metabolic Panel 06/03/20 Range/Units 20:03 Sodium 138 (137-145) mmol/L Potassium 4.9 (3.5-5.1) mmol/L Chloride 104 (98-107) mmol/L Carbon Dioxide 24 (22-30) mmol/L BUN 28 H (9-20) mg/dL Creatinine 1.32 H (0.66-1.25) mg/dL Glucose 113 H (74-99) mg/dL Calcium 9.7 (8.4-10.2) mg/dL AST 32 (17-59) U/L ALT 21 (4-49) U/L Alkaline Phosphatase 38 (38-126) U/L Total Protein 7.3 (6.3-8.2) g/dL Albumin 4.2 (3.5-5.0) g/dL Current Medications Generic Name Dose Route Start Last Admin Trade Name Freq PRN Reason Stop Dose Admin Acetaminophen 650 mg 06/03/20 22:23 Acetaminophen Tab 325 Mg Tab PO Q6HR PRN Mild Pain or Fever > 100.5 Sodium Chloride 1,000 mls @ 80 mls/hr 06/03/20 22:30 06/03/20 22:31 Saline 0.9% IV 80 mls/hr .[id number] KEVIN Administration Naloxone HCl 0.2 mg 06/03/20 22:23 Naloxone 0.4 Mg/Ml 1 Ml Vial IV Q2M PRN Opioid Reversal Ondansetron HCl 4 mg 06/03/20 22:23 Ondansetron 4 Mg/2 Ml Vial IVP Q8HR PRN Nausea And Vomiting Intake and Output 06/03/20 06/04/20 06/04/20 22:59 06:59 14:59 Intake Total 0 Balance 0 Intake: Oral 0 Other: # Voids 0 1 Weight 89.811 kg 89.811 kg 06/03/20 20:03 06/03/20 20:03
[2020-06-04] MEDS: SODIUM CHLORIDE 0.9% 1,000 ML IV SCH (14:00)
[2020-06-04] MEDS: ACETAMINOPHEN TAB 325 MG TAB PO PRN (16:42)
[2020-06-04] MEDS: PROPAFENONE 150 MG TAB PO SCH ×2 (16:43→21:08)
[2020-06-04] MEDS ORDERED: amLODIPine 5 MG TAB PO SCH (21:00)
[2020-06-04] MEDS ORDERED: traZODone HCL 100 MG TAB PO SCH (21:00)
[2020-06-04] MEDS ORDERED: MONTELUKAST 10 MG TAB PO SCH (21:00)
[2020-06-05 04:20] VITALS: TEMP 98.4
[2020-06-05] MEDS: SODIUM CHLORIDE 0.9% 1,000 ML IV SCH (06:19)
[2020-06-05] MEDS ORDERED: LEVOTHYROXINE 50 MCG TAB PO SCH (06:30)
[2020-06-05] MEDS: PROPAFENONE 150 MG TAB PO SCH (08:19)
[2020-06-05] MEDS: RIVAROXABAN 20 MG TAB PO SCH (08:19)
[2020-06-05] MEDS: ACETAMINOPHEN TAB 325 MG TAB PO PRN (08:23)
[2020-06-05 08:37] VITALS: RESP 16
[2020-06-05] MEDS ORDERED: NIFEdipine XL 90 MG TAB.ER.24 PO SCH (09:00)
[2020-06-05] MEDS ORDERED: FENOFIBRATE 160 MG TAB PO SCH (09:00)
[2020-06-05] MEDS ORDERED: amLODIPine 5 MG TAB PO SCH (09:00)
[2020-06-05] MEDS ORDERED: LOSARTAN 50 MG TAB PO SCH (09:00)
[2020-06-05 12:16] VITALS: BP 131/78; PULSE 59
--- NOTE | 2020-06-05 12:31 | P.PN ---
Subjective HISTORY OF PRESENTING ILLNESS This is a pleasant 79-year-old male past medical history significant for excessively atrial fibrillation on long-term anticoagulation, hypertension, prostate cancer and former nicotine dependence. He follows in the office with a ultrasound tech in [facility], Dr. Elizabeth. He is seen and examined sitting up in the chair. He denies dizziness, chest pain, shortness of breath, nausea, vomiting or palpitations. Telemetry tracings reviewed, no significant arrhythmia or bradycardia. Echocardiogram obtained revealed preserved LV systolic function with EF 55-60%, mild aortic stenosis with mean gradient 14 mmHg, mild MR, mild TR, mild pulmonary hypertension with RVSP 36. Blood pressure 131/78 heart rate 59 afebrile and maintaining oxygen saturation on room air. PHYSICAL EXAMINATION CONSTITUTIONAL: No apparent distress. HEENT: Head is normocephalic. Pupils are equal, round. Sclerae anicteric. Mucous membranes of the mouth are moist. No JVD. No carotid bruit. CHEST EXAMINATION: Lungs are clear to auscultation. No chest wall tenderness is noted on palpation or with deep breathing. HEART EXAMINATION: Regular rate and rhythm. S1, S2 heard. Systolic ejection murmur at the base, no gallops or rub. EXTREMITIES: 2+ peripheral pulses, no lower extremity edema and no calf tenderness. ASSESSMENT Near syncope with bradycardia Acute kidney injury Paroxysmal atrial fibrillation on long-term anticoagulation Hypertension PLAN No evidence of an acute arrhythmia or significant bradycardia on telemetry. Continue medications as previously ordered. Follow up with his primary ultrasound tech upon discharge. Discussed medication changes with the patient. Nurse Practitioner note has been reviewed, I agree with a documented findings and plan of care. Patient was seen and examined. Objective - Vital Signs Vital signs: Vital Signs Temp 98.4 F 06/05/20 04:00 Pulse 59 L 06/05/20 12:00 Resp 16 06/05/20 12:00 BP 131/78 06/05/20 12:00 Pulse Ox 97 06/05/20 12:08 Intake & Output 06/04/20 06/05/20 06/05/20 18:59 06:59 18:59 Intake Total 800 495 Balance 800 495 Weight 90.3 kg Intake: Intake, IV Titration 320 375 Amount Sodium Chloride 0.9% 1, 375 000 ml @ 75 mls/hr IV . [id number] [facility] Rx#:[id number] Sodium Chloride 0.9% 1, 320 000 ml @ 80 mls/hr IV . [id number] KEVIN Rx#:[id number] Oral 480 120 Other: # Voids 2 1 1 - Labs CBC & Chem 7: 06/03/20 20:03 06/03/20 20:03
== END 2020-06-05 14:52 | disposition home or self-care (01) | DRG 309 ==
LOC: EC 19:29 → 3SCARD 22:23
PROVIDERS: ADMIT Internal Medicine; ATTEND Internal Medicine
DX: R00.1 Bradycardia, unspecified (principal); N17.9 Acute kidney failure, unspecified; E03.9 Hypothyroidism, unspecified; E78.5 Hyperlipidemia, unspecified; I10 Essential (primary) hypertension; I27.20 Pulmonary hypertension, unspecified; I08.3 Combined rheumatic disorders of mitral, aortic and tricuspid valves; I48.0 Paroxysmal atrial fibrillation; I95.9 Hypotension, unspecified; K21.9 Gastro-esophageal reflux disease without esophagitis; Z79.01 Long term (current) use of anticoagulants; Z79.890 Hormone replacement therapy; Z79.899 Other long term (current) drug therapy; Z85.46 Personal history of malignant neoplasm of prostate; Z87.891 Personal history of nicotine dependence; Z83.2 Family history of diseases of the blood and blood-forming organs and certain disorders involving the immune mechanism; Z80.9 Family history of malignant neoplasm, unspecified
CPT/HCPCS: 36415; 71046; 80053; 83735; 84443; 84484; 85025; 85610; 85730; 93005; 93306; 94760; 96360; 96361; 99285